=== PATIENT | female | born 1985 | race Caucasian/White ===

== ENCOUNTER 2020-02-19 20:27 | Outpatient (CLI) | payer MEDICAID ==
[2020-02-19 20:36] VITALS: BP 136/76
[2020-02-19 23:10] LABS: APPEARANCE,URINE SLIGHTLY-CLOUDY; BILIRUBIN,URINE NEGATIVE (NEGATIVE); COLOR,URINE YELLOW; GLUCOSE, URINE NEGATIVE (NEGATIVE); KETONES,URINE TRACE mg/dL (NEGATIVE); LEUKOCYTE ESTERASE,URINE NEGATIVE (NEGATIVE); NITRITE,URINE NEGATIVE (NEGATIVE); PROTEIN,URINE NEGATIVE (NEGATIVE); UROBILINOGEN,URINE NEGATIVE mg/dL (<2.0)
[2020-02-19 23:41] LABS: URINE AMPHETAMINES SCREEN NEGATIVE; URINE BARBITURATES SCREEN NEGATIVE; URINE BENZODIAZEPINES SCREEN NEGATIVE; URINE COCAINE SCREEN NEGATIVE; URINE MARIJUANA (THC) SCREEN NEGATIVE; URINE METHADONE SCREEN NEGATIVE; URINE PHENCYCLIDINE SCREEN NEGATIVE
--- NOTE | 2020-02-20 00:17 | RADIOLOGY REPORT (SQ) ---
CLINICAL HISTORY: spotting, placenta location, cervical length, pres COMPARISON: None. TECHNIQUE: US LIMITED 02/19/2020 12:00 AM CDT FINDINGS: The cervix measures 4.2 cm and is closed. Single intrauterine gestation is in breech presentation. SAEED is normal measuring 11 cm. Placenta is somewhat low-lying and posterior biparietal diameter measures 4.8 cm corresponding to 20 weeks three days. Head circumference measures 18.2 cm corresponding to 20 weeks four days. Abdominal circumference measures 14.5 cm corresponding to 19 weeks six days. Femur length measures 3.2 cm corresponding to 20 weeks zero days. IMPRESSION: Low-lying placenta. Recommend repeat study in third trimester. Closed cervix.
[2020-02-20 00:27] LABS: EPITHELIALS (WET MOUNT) 3+ EPITHELIALS SEEN; RBCS (WET MOUNT) RARE RBCS SEEN; T.VAGINALIS (WET MOUNT) NO TRICHOMONAS SEEN; WBCS (WET MOUNT) FEW WBCS SEEN; YEAST (WET MOUNT) NO YEAST SEEN
[2020-02-20 01:54] LABS: CHLAM PCR NOT DETECTED (NOT DETECT)
== END 2020-02-20 02:14 | disposition home or self-care (01) ==
LOC: EDSTATUS 22:27 → LC 22:31
PROVIDERS: ATTEND Student in an Organized Health Care Education/Training Program
DX: O26.852 Spotting complicating pregnancy, second trimester (principal); O44.42 Low lying placenta NOS or without hemorrhage, second trimester; O09.32 Supervision of pregnancy with insufficient antenatal care, second trimester; Z3A.20 20 weeks gestation of pregnancy; Z88.0 Allergy status to penicillin
CPT/HCPCS: 76815; 80307; 81001; 87210; 87491; 87591